=== PATIENT | female | born 1935 | race African-American/Black ===

== ENCOUNTER 2018-01-16 17:09 | Emergency (ER) | payer MEDICARE, MEDICAID ==
[2018-01-16 17:22] VITALS: BP 138/79
--- NOTE | 2018-01-16 17:57 | RAD ---
INDICATION: Right knee injury. TECHNIQUE: 4 views of the right knee were obtained. FINDINGS: The bones are normal alignment. There is a moderate joint effusion present. There is a small calcific density adjacent to the lateral femoral condyle suggestive of a small avulsion fracture fragment. This measures 3 mm in length. Joint spaces appear maintained. IMPRESSION: JOINT EFFUSION AND PROBABLE SMALL AVULSION FRACTURE FRAGMENT DESCRIBED.
[2018-01-16] MEDS ORDERED: Naproxen TAB* 250 MG PO ONE (18:16)
--- NOTE | 2018-01-16 18:16 | UC ---
Knee Pain HPI - HPI Summary HPI Summary: Patient states that about 10 days ago she fell when her walker was caught in a carpet. She could walk inmediately after and pain was mild to moderate. She went to PCP who performed exam of her knee, and she could tolerate all the maneuvers without a problem. She states that for the past few days pain has become worse and she feels her knee is giving away to the side and also pain on the outer side of the knee has increased. She has not taken any NSAID since she is on percoset but she states she has naproxen at home. - History of Current Complaint Chief Complaint: UCLowerExtremity Stated Complaint: KNEE INJURY Time Seen by Provider: 01/16/18 17:30 Hx Obtained From: Patient Hx Last Menstrual Period: na ?: No Onset/Duration: Sudden Onset, Lasting Days Severity Initially: Mild Severity Currently: Moderate Pain Intensity: 6 Character: Dull, Aching Aggravating Factor(s): Movement, Weight Bearing, Prolonged Standing Alleviating Factor(s): Rest Associated Signs And Symptoms: Positive: Negative Able to Bear Weight: Yes - Risk Factors Septic Arthritis Risk Factor: Negative Gout Risk Factor: Negative - Allergies/Home Medications Allergies/Adverse Reactions: Allergies Allergy/AdvReac Type Severity Reaction Status Date / Time morphine Allergy Intermediate Hives Verified 01/16/18 17:23 AMARIS Allergy Intermediate Eyes Uncoded 07/10/15 09:53 Itchy/Swollen/Red/Watery Home Medications: Home Medications Albuterol Sulfate [Proventil Hfa] 01/16/18 [History] Oxycodone HCl/Acetaminophen [Oxycodone/Acetaminophen] 1 tab PO DAILY WITH MEAL 01/16/18 [History Confirmed 01/16/18] Spironolactone 25 mg pe PO DAILY WITH MEAL 01/16/18 [History Confirmed 01/16/18] traZODone TAB* [Desyrel TAB*] 100 mg PO BEDTIME 01/16/18 [History Confirmed 05/24] PMH/Surg Hx/FS Hx/Imm Hx Endocrine History: Dyslipidemia Respiratory History: Asthma GI/ History: Gastroesophageal Reflux Neurological History: Other - fibromyalgia, insomnia Other Neurological History: fibromyalgia, insomnia - Surgical History Surgical History: Yes Surgery Procedure, Year, and Place: 1959 Hysterectomy with tubal [id number] Left hip [id number] Cervical [id number] [id number] L knee arthroscopy - Family History Known Family History: Positive: Respiratory Disease Negative: Cardiac Disease - Social History Alcohol Use: None Substance Use Type: None Smoking Status (MU): Former Smoker When Did the Patient Quit Smoking/Using Tobacco: 1959 - Immunization History Most Recent Influenza Vaccination: April 2014 Most Recent Tetanus Shot: not sure Most Recent Pneumonia Vaccination: 2009 Review of Systems Constitutional: Negative Musculoskeletal: Arthralgia, Myalgia All Other Systems Reviewed And Are Negative: Yes Physical Exam Triage Information Reviewed: Yes Appearance: Well-Appearing, No Pain Distress, Obese Vital Signs: Initial Vital Signs Temp 98.9 F 01/16/18 17:18 Pulse 98 01/16/18 17:18 Resp 20 01/16/18 17:18 BP 138/79 01/16/18 17:18 Pulse Ox 96 01/16/18 17:18 Vital Signs Reviewed: Yes Eyes: Positive: Conjunctiva Clear ENT: Positive: Hearing grossly normal Neck: Positive: Supple, Nontender Respiratory: Positive: Chest non-tender Cardiovascular: Positive: Pulses Normal, Brisk Capillary Refill Abdomen Description: Positive: Nontender, No Organomegaly Musculoskeletal: Positive: ROM Intact, No Edema, Other: - tenderness along lateral aspect of patella, it is mobile, varus/valgus test limited by tenderness for which patient flexes the knee, ADT negative. No tenderness along pes anserinus Knee Pain Course/Dx - Course Course Of Treatment: small avulsion fracture lateral condyle, referred to Orthopedics, continue naproxen , JACKLYN bandage and knee stabilizer fitted - Differential Dx/Diagnosis Provider Diagnoses: Avulsion fracture of lateral condyle right knee Discharge - Sign-Out/Discharge Documenting (check all that apply): Patient Departure - Discharge Plan Condition: Good Disposition: HOME Patient Education Materials: Naproxen (By mouth), Knee Pain (ED), Arthralgia ( ED) Referrals: Rocky Michelle MD [Primary Care Provider] - Alysha Turpin MD [Medical Doctor] - - Billing Disposition and Condition Condition: GOOD Disposition: Home
== END 2018-01-16 18:30 | disposition home or self-care (01) ==
LOC: UCEAST 17:09
DX: S82.001A Unspecified fracture of right patella, initial encounter for closed fracture (principal); W01.0XXA Fall on same level from slipping, tripping and stumbling without subsequent striking against object, initial encounter; Y93.9 Activity, unspecified; Y99.9 Unspecified external cause status; E78.5 Hyperlipidemia, unspecified; J45.909 Unspecified asthma, uncomplicated; K21.9 Gastro-esophageal reflux disease without esophagitis; M79.7 Fibromyalgia; G47.00 Insomnia, unspecified
CPT/HCPCS: 99213; A9270-GY; G0463

== ENCOUNTER 2018-05-24 06:54 | Inpatient (IN) | payer MEDICARE, MEDICAID ==
--- NOTE | 2018-05-12 19:29 | HP ---
HISTORY AND PHYSICAL: DATE OF ADMISSION/SURGERY: 05/24/18 DATE OF OFFICE VISIT: 05/11/18 SURGEON: Alysha Turpin MD * (DICTATED BY HERMINIO VAZQUEZ) PROCEDURE: Right total knee arthroplasty. CHIEF COMPLAINT: Right knee pain. HISTORY OF PRESENT ILLNESS: Ms. Hannah is an 82-year-old female with end- stage osteoarthritis of the right knee. She has failed conservative treatment and elected to proceed with a right total knee arthroplasty. PAST MEDICAL HISTORY: Hypertension, high cholesterol, GERD and TIA. PAST SURGICAL HISTORY: Left total hip arthroplasty, cervical laminectomy, tubal ligation, hemorrhoidectomy and hysterectomy. CURRENT MEDICATIONS: 1. Cyclobenzaprine 10 mg. 2. Lovastatin 20 mg. 3. Naproxen 375 mg. 4. Omeprazole 40 mg daily. 5. Oxybutynin chloride 5 mg daily. 6. Percocet as needed. 7. ProAir HFA. 8. Spironolactone/hydrochlorothiazide 25/25 mg daily. 9. Trazodone 50 mg. 10. Voltaren gel. 11. Calcium with vitamin D. 12. Aspirin 325. ALLERGIES: To MORPHINE. FAMILY HISTORY: Colon cancer and DVT. SOCIAL HISTORY: She is an 82-year-old female. She lives alone. She does not smoke or use drugs. She uses occasional alcohol. REVIEW OF SYSTEMS: A complete 14-point review of systems was reviewed with the patient. It is positive for GERD and a TIA. She denies history of DVT, PE, hepatitis, HIV, or anesthesia problems. PHYSICAL EXAMINATION GENERAL: She is well developed, well nourished, in no acute distress. VITAL SIGNS: She stands about 5 feet 5 inches tall, weighs 215 pounds. Her blood pressure is 120/72 and her heart rate is 84. HEENT: Normocephalic, atraumatic. NECK: Supple. No palpable lymph nodes. PULMONARY: The lungs are clear to auscultation bilaterally. CARDIO: Regular rate and rhythm. Strong S1, S2. ABDOMEN: Soft, nontender, nondistended. NEUROLOGICAL: She is alert and oriented x3. MUSCULOSKELETAL: Right lower extremity, the skin is intact. There are no open wounds or abrasions. She has moderate joint effusion and some tenderness over the medial lateral joint line. Calf is soft and nontender. She has 2+ dorsalis pedis pulse. Intact sensation to lower extremity, muscle group strengths are intact at 5/5. ASSESSMENT AND PLAN: Ms. Hannah is an 82-year-old female with end-stage osteoarthritis of the right knee. She has failed conservative treatment and elected to proceed with a right total knee arthroplasty. The surgery is scheduled for 05/24/[address] Turpin discussed the risks and the benefits of the surgery at today's visit and all of her questions were answered. She will follow up with Dr. Turpin 2 weeks after the surgery. HERMINIO VAZQUEZ [id number]/[facility] #: [id number] MTDBelem
[~2018-05-24 06:54] MED LIST: Buffered Lidocaine 0.9% SYRIN* 5 ML/SYR SYRINGE INTRADERM ONE; Dexamethasone IV* 4 MG/ML 1 ML (4 MG) IV SLOW PU ONE; Dexamethasone IV* 4 MG/ML 1 ML (4 MG) ONE; Famotidine IV* 10 MG/ML 2 ML (20 mg) IV ONE; Famotidine IV* 10 MG/ML 2 ML (20 mg) ONE; Lactated Ringers 1000 ML Bag* 1,000 ML IV SCH; Tranexamic Acid 1,000 MG in NS 0.9% 50 ML* (outpatient use) IV SCH; ceFAZolin 2 GM PREMIX in ORs 2 GM/50 ML BAG IVPB ONE
[2018-05-24] MEDS ORDERED: Lidocaine 2% PF * 5 ML VIAL ONE (06:56)
[2018-05-24] MEDS ORDERED: Midazolam* 1 MG/ML 2 ML VIAL (2 MG) ONE (06:56)
[2018-05-24] MEDS ORDERED: fentaNYL* 50 MCG/ML 2 ML VIAL (100 MCG VIAL) ONE ×2 (06:56→10:48)
--- OUTSIDE RECORDS SUMMARY | 2018-05-24 06:58 | XMS REPORT | Continuity of Care Document ---
:1935 External Reference #:[id number] Author Name Mercedes Kirk Care Team Providers Name Role Phone Rocky Michelle MD Primary Care Physician Unavailable Payers Type Date Identification Numbers Payment Provider Subscriber Policy Number: [id number] Medicare Azeb Hannah PayID: [id number] [address] [place] [address] Effective: 2009 Policy Number: [id number] Medicaid Azeb Hannah PayID: [id number] [address] [place] [address] Effective: 2016 Policy Number: [id number] [facility] Azeb Hannah Expires: 2018 Group Number: [id number] [facility] PayID: [id number] [facility] [address] [place] [address] Advance Directives Description No Information Available Problems Date Description Provider Status Onset: 12/04/2014 Closed fracture of medial malleolus Paulino Baker M.D. Active Onset: 01/17/2018 Localized, primary osteoarthritis Alysha Turpin M.D. Active Onset: 01/17/2018 Fall Alysha Turpin M.D. Active Family History Date Family Member(s) Problem(s) Comments General Cancer General Rheumatoid Arthritis Social History Type Date Description Comments Sex Unknown Lives With Alone Occupation Retired ETOH Use Denies alcohol use Tobacco Use Start: Unknown End: Patient is a former smoker Unknown Smoking Status Reviewed: 05/11/18 Patient is a former smoker Exercise Type/Frequency Exercises sporadically Allergies, Adverse Reactions, Alerts Date Description Reaction Status Severity Comments 01/17/2018 Morphine Active 04/24/2014 NKDA Inactive Medications Medication Date Status Form Strength Qnty SIG Indications Ordering Provider Cyclobenzaprine / Active Tablets 10mg Shallish, HCL 0000 MD Nixon Lovastatin / Active Tablets 20mg Midura, 0000 MD Rocky Naproxen / Active Tablets 375mg Midura, 0000 MD Rocky Omeprazole / Active Capsules 40mg Breiman, 0000 DR Omid MD Oxybutynin / Active Tablets 5mg Unknown Chloride 0000 Oxycodone-Acetami / Active Tablets 5-325mg Take 1-2 Unknown nophen 0000 Tablets By Mouth Every Six Hours as Needed Max Of 8 Per Day Proair HFA / Active Aerosol 108(90Base Midura, 0000 ) mcg/Act MD Rocky Spironolactone/Hy / Active Tablets 25-25mg Unknown drochlorothiazide 0000 Trazodone HCL / Active Tablets 50mg Dale 0000 dOmid MD Voltaren / Active Gel 1% Midura, 0000 MD Rocky Calcium + D / Active Unknown 0000 Aspirin / Active Tablets DR 325mg take 1 Unknown 0000 by mouth twice a day for two weeks Neurontin 04/24/ Hx Capsules 300mg 90caps 2 tabs Leonardo 2013 - by mouth Justino, 01/16/ every M.D. 2017 night at bedtime. after 10 days if no side effects add one tab po qAM Omeprazole / Hx 20mg Unknown 2017 Lovastatin / Hx 20mg Unknown 2017 Flexeril / Hx 10mg Unknown 2017 Trazodone HCL / Hx 50mg Unknown 2017 Lovenox / Hx 40mg Unknown 2017 Medications Administered in Office Medication Date Status Form Strength Qnty SIG Indications Ordering Provider Synvisc Or Administered Injection Alysha Synvisc-One 018 Mayelin Turpin Injection 1 MG Synvisc Or Administered Injection Alysha Synvisc-One 018 Mayelin Turpin Injection 1 MG Synvisc Or Administered Injection Alysha Synvisc-One Beatrice Turpin M.D. Injection 1 MG Depomedrol Administered Injection Alysha 40MG Beatrice Turpin M.D. Immunizations Description No Information Available Vital Signs Date Vital Result Comment 05/11/2018 11:37am Height 64 inches 5'4" Weight 216.00 lb Heart Rate 84 /min BP Systolic 120 mmHg BP Diastolic 72 mmHg Respiratory Rate 20 /min Body Temperature 98.3 F Pain Level 6 BMI (Body Mass Index) 37.1 kg/m2 04/04/2018 2:09pm Height 64 inches 5'4" Weight 215.00 lb BP Systolic 120 mmHg BP Diastolic 84 mmHg Body Temperature 97.8 F BMI (Body Mass Index) 36.9 kg/m2 03/28/2018 1:22pm Height 64 inches 5'4" Weight 216.00 lb BP Systolic 138 mmHg BP Diastolic 90 mmHg Body Temperature 98.1 F BMI (Body Mass Index) 37.1 kg/m2 02/25/2018 1:02pm Heart Rate 96 /min BP Systolic Sitting 128 mmHg BP Diastolic Sitting 78 mmHg Respiratory Rate 18 /min Pain Level 0 01/28/2018 11:08am Height 64 inches 5'4" BP Systolic 122 mmHg BP Diastolic 78 mmHg Respiratory Rate 17 /min Body Temperature 98.2 F Pain Level 6 01/17/2018 2:11pm Height 64 inches 5'4" Weight 220.00 lb Heart Rate 92 /min BP Systolic 120 mmHg BP Diastolic 76 mmHg BMI (Body Mass Index) 37.8 kg/m2 01/03/2015 1:39pm Height 64 inches 5'4" Weight 217.00 lb Pain Level 1 BMI (Body Mass Index) 37.2 kg/m2 12/04/2014 1:04pm Height 64 inches 5'4" Weight 217.00 lb Pain Level 2 at times BMI (Body Mass Index) 37.2 kg/m2 11/22/2014 12:01pm Height 64 inches 5'4" Weight 217.00 lb Pain Level 4 BMI (Body Mass Index) 37.2 kg/m2 11/08/2014 10:30am Height 64 inches 5'4" Weight 217.00 lb Heart Rate 103 /min BP Systolic 114 mmHg BP Diastolic 80 mmHg BMI (Body Mass Index) 37.2 kg/m2 05/23/2014 1:10pm Height 64 inches 5'4" Heart Rate 92 /min BP Systolic 113 mmHg BP Diastolic 74 mmHg 04/24/2014 1:12pm Height 64 inches 5'4" Weight 206.00 lb Heart Rate 88 /min BP Systolic 140 mmHg BP Diastolic 86 mmHg BMI (Body Mass Index) 35.4 kg/m2 Results Description No Information Available Procedures Date Code Description Status 04/11/2018 Inject/Drain Joint/Bursa Major W/O US Completed 04/04/2018 Inject/Drain Joint/Bursa Major W/O US Completed 03/28/2018 Inject/Drain Joint/Bursa Major W/O US Completed 01/28/2018 Inject/Drain Joint/Bursa Major W/O US Completed 05/04/2016 73172 ECHO Transthorasic Realtime 2D W Doppler & Color Flow Hosp Completed 11/08/2014 42065 Short Leg Cast Completed 10/30/2014 98201 ECHO Transthorasic Realtime 2D W Doppler & Color Flow Hosp Completed 10/30/2014 01901 EKG, Interpretation Only Completed 10/29/2014 19301 Closed TX Bimalleolar FX W/O Manip Completed 06/11/2014 56902 ECHO Transthorasic Realtime 2D W Doppler & Color Flow Hosp Completed 04/24/2014 64587 Rad Shoulder Comp, Min. 2 Views Completed 11/11/2012 76332 Treadmill Interp/Report Only Completed 11/11/2012 67161 Stress Test Supervsn W/Out I/R Completed 11/11/2012 99222 EKG, Interpretation Only Completed 10/25/2009 96873 ECHO Transthorasic Realtime 2D W Doppler & Color Flow Hosp Completed 09/18/2005 38830 EKG, Interpretation Only Completed 05/27/2004 49146 ECHO/Stress Completed 05/27/2004 75581 Treadmill Interp/Report Only Completed 05/27/2004 53387 Stress Test Supervsn W/Out I/R Completed Encounters Type Date Location Provider Dx Diagnosis Office Visit 02/25/2018 Orthopedic Alysha Turpin, M25.561 Pain in right 1:45p [facility] knee M25.461 Effusion, right knee M17.11 Unilateral primary osteoarthritis, right knee Office Visit 01/28/2018 11:00a [facility] Alysha Turpin, M25.561 Pain in right Of C.M.A. M.D. knee M25.461 Effusion, right knee M17.11 Unilateral primary osteoarthritis, right knee W01.0xxA Fall same lev from slip/trip w/o strike against object, init E66.01 Morbid (severe) obesity due to excess calories Office Visit 01/17/2018 1:45p [facility] Alysha Turpin, M25.561 Pain in right Of C.M.A. M.D. knee M25.461 Effusion, right knee M17.11 Unilateral primary osteoarthritis, right knee W19.xxxA Unspecified fall, initial encounter W01.0xxA Fall same lev from slip/trip w/o strike against object, init Office Visit 05/05/2016 [facility] N30.00 Acute cystitis 1:01p Assocguicho NP without Hospitalists hematuria R41.0 Disorientation, unspecified W19.xxxA Unspecified fall, initial encounter I10 Essential (primary) hypertension Office Visit 05/04/2016 [facility] N30.00 Acute cystitis 1:00p Assocguicho NP without Hospitalists hematuria R41.0 Disorientation, unspecified I10 Essential (primary) hypertension W19.xxxA Unspecified fall, initial encounter Office Visit 05/03/2016 [facility] R41.0 Disorientation, 12:59p Assoc,guicho Puente D.O. unspecified Hospitalists I10 Essential (primary) hypertension N30.00 Acute cystitis without hematuria W19.xxxA Unspecified fall, initial encounter Office Visit 11/02/2014 10:51a [facility] Ruddy Monterroso, 780.2 Syncope & Assoc,pc M.D. Collapse Hospitalists 824.8 FX Ankle Unspec Closed 723.1 Cervicalgia 401.9 Hypertension Unspec Office Visit 10/29/2014 10:47a [facility] Francisco Omar, 780.2 Syncope & Assoc,pc N.P. Collapse Hospitalists 824.8 FX Ankle Unspec Closed 401.9 Hypertension Unspec 723.1 Cervicalgia Office Visit 10/29/2014 7:00a Orthopedic Paulino Baker, 824.0 FX Ankle Medial [facility] Malleolus Closed 824.4 FX Ankle Bimalleolar Closed Office Visit 06/12/2014 6:49p [facility] Vira 435.9 TIA Ischemia Assoc,guicho Love, TRUST MAIL CLERK Cerebral Hospitalists Transient Unspec 401.9 Hypertension Unspec 530.81 Esophageal Reflux 272.4 Hyperlipidemia Other Unspec Office Visit 06/12/2014 3:04p [facility] Elías Soto 435.9 TIA Ischemia [facility] Cerebral Transient Unspec 331.89 Cerebral Ataxia Other 401.1 Hypertension Benign Office Visit 06/11/2014 9:51a [facility] Elías Soto 435.9 TIA Ischemia [facility] Cerebral Transient Unspec 331.89 Cerebral Ataxia Other 401.1 Hypertension Benign Office Visit 06/10/2014 [facility] Rajesh Granados 435.9 TIA Ischemia 6:47p Assoc,guicho DEE M.D. Cerebral Hospitalists Transient Unspec 401.9 Hypertension Unspec 272.4 Hyperlipidemia Other Unspec 530.81 Esophageal Reflux Office Visit 05/23/2014 Orthopedic Leonardo 723.4 Brachial Neuritis 1:30p [facility] Badillo M.D. Or Radiculitis NOS Office Visit 04/24/2014 [facility] Leonardo 724.4 Neuritis Or 1:00p [facility] Badillo M.D. Radiculitis Thoracic Or Lumbosacral Unspec Office Visit 11/12/2012 [facility] Ruddy Monterroso, 786.51 Pain Precordial 10:38a guicho Ness M.D. Hospitalists Office Visit 11/11/2012 [facility] Frankie 786.51 Pain Precordial 10:38a Assguicho pickard M.D. Hospitalists Office Visit 10/26/2009 [facility] 780.2 Syncope & 2:45a guicho Ness M.D. Collapse Hospitalists Office Visit 10/25/2009 [facility] 780.2 Syncope & 2:45a guicho Ness M.D. Collapse Hospitalists Office Visit 12/07/2006 [facility] 782.0 Skin Sensation 2:15p Services Of Osvaldo Ferrera M.D. Disturbance Office Visit 11/30/2006 [facility] Patrick 782.0 Skin Sensation 2:30p Services [facility] Osvaldo Ferrera M.D. Disturbance Plan of Treatment Future Appointment(s):05/24/2018 9:30 am - ANUJ Colon at [facility].05/24/2018 9:30 am - HERMINIO Geronimo at [facility].05/24/2018 9:30 am - Alysha Turpin M.D. at [facility].05/11/2018 - Alysha Turpin M.D.M17.11 Unilateral primary osteoarthritis, right kneeFollow up:Follow up: 2 weeks after jouirbhI10.561 Pain in right kneeM25.461 Effusion, right knee
[2018-05-24] MEDS ORDERED: Bupivacaine 0.5% PF 10 ML VIAL INJ ONE (07:05)
[2018-05-24] MEDS ORDERED: Rocuronium* 10 MG/ML VIAL ONE (07:21)
[2018-05-24] MEDS ORDERED: Lidocaine 1%* 5 ML VIAL ONE (07:29)
[2018-05-24] MEDS ORDERED: ROPIVACAINE 5 MG/ML 30 ML BTL (0.5%) ONE (07:29)
[2018-05-24] MEDS ORDERED: HYDROmorphone INJ1* 1 MG/ML SYRINGE ONE ×2 (08:04→10:44)
[2018-05-24] MEDS ORDERED: Propofol* 10 MG/ML 20 ML BTL ONE (08:34)
[2018-05-24] MEDS ORDERED: Bupivacaine-MPF SPINAL* 7.5 MG/ML - 2ML AMP ONE (08:34)
[2018-05-24] MEDS ORDERED: Naloxone* 0.4 MG/ML 1 ML VIAL IV PRN (08:37)
[2018-05-24] MEDS ORDERED: Acetaminophen IV 1GM/100ML * 1,000 MG/100 ML VIAL IVPB ONE (08:37)
[2018-05-24] MEDS ORDERED: oxyCODONE/Acetamin 5/325 MG* TAB PO PRN ×2 (08:43→10:14)
[2018-05-24] MEDS ORDERED: Ketorolac INJ* 30 MG/ML 1 ML VIAL IV PRN (08:43)
[2018-05-24] MEDS ORDERED: PROCHLORPERAZINE INJ 5 MG/ML 2 ML VIAL IV PRN (08:43)
[2018-05-24] MEDS ORDERED: DiMENhydriNATE IV* 50 MG/ML VIAL IV PUSH PRN (08:43)
[2018-05-24] MEDS ORDERED: Ondansetron INJ* 2 MG/ML VIAL ONE (09:56)
[2018-05-24] MEDS ORDERED: Acetaminophen IV 1GM/100ML * 100 ML ONE (10:00)
[2018-05-24] MEDS ORDERED: Ketorolac INJ* 30 MG/ML 1 ML VIAL ONE (10:00)
[2018-05-24] MEDS ORDERED: Ondansetron TAB* 4 MG PO PRN (10:14)
[2018-05-24] MEDS ORDERED: Ondansetron INJ* 2 MG/ML VIAL IV PRN (10:14)
[2018-05-24] MEDS ORDERED: Magnesium Hydroxide LIQ* 30 ML UDC PO PRN (10:14)
[2018-05-24] MEDS ORDERED: Bisacodyl SUPP* 10 MG SUPP PR PRN (10:14)
[2018-05-24] MEDS ORDERED: Polyethylene Glycol 3350* 17 GM PACKET PO PRN (10:14)
[2018-05-24] MEDS ORDERED: Oxybutynin TAB* 5 MG PO PRN (10:19)
[2018-05-24] MEDS: HYDROmorphone INJ1* 1 MG/ML SYRINGE IV PRN ×5 (10:44→11:30)
[2018-05-24] MEDS: fentaNYL* 50 MCG/ML 2 ML VIAL (100 MCG VIAL) IV PRN ×4 (10:49→11:07)
[2018-05-24] MEDS ORDERED: Albuterol HFA INHALER* 8 gm MDI INH PRN (11:51)
[2018-05-24] MEDS ORDERED: diPHENhydraMINE IV* 50 MG/ML 1 ml VIAL (BENADRYL) IV PRN (11:53)
[2018-05-24] MEDS ORDERED: oxyCODONE/Acetamin 5/325 MG* TAB ONE (11:53)
[2018-05-24] MEDS: oxyCODONE/Acetamin 5/325 MG* TAB PO PRN ×3 (11:59→21:51)
[2018-05-24] MEDS: Lactated Ringers 1000 ML Bag* 1,000 ML IV SCH ×2 (12:01→22:00)
--- NOTE | 2018-05-24 13:27 | PN ---
Progress Note - Progress Note Date of Service: 05/24/18 SOAP: Patient is POD [address] Turpin. She is complaining of pain of her right knee, she did receive dilaudid 1 hour ago and percocet just recently. Denies CP , SOB, dizziness, nausea, history of blood clot. She does have a history of TIA. Patient is in NAD, DF/PF intact, sensation intact to light touch distally, DP2+. I discussed pain control with nursing, as she did recently receive percocet we elect to give it time as patient is not terribly uncomfortable, if pain is not better controlled within the hour with current orders she will contact me.
[2018-05-24] MEDS: HYDROmorphone INJ1* 1 MG/ML SYRINGE IV SLOW PU PRN ×3 (13:55→23:05)
[2018-05-24] MEDS: ceFAZolin 1 GM ADVAN(*) 1 GM in NS 0.9% 50 ML* 50 ML IVPB SCH ×2 (16:35→23:44)
[2018-05-24] MEDS ORDERED: Warfarin TAB(*) 6 MG PO ONE (17:00)
[2018-05-24] MEDS: Acetaminophen TAB* 325 MG PO SCH (17:16)
--- NOTE | 2018-05-24 18:49 | CONS ---
CONSULTATION REPORT: DATE OF CONSULT: 05/24/18 PRIMARY CARE PROVIDER: Rocky Michelle MD ATTENDING PHYSICIAN: Alysha Turpin MD CONSULTING PHYSICIAN: Negrita Lisa MD, (HERMINIO Marin dictating) REASON FOR CONSULTATION: Medical comanagement in patient admitted for TKA. 1. Hypertension. 2. Hyperlipidemia. 3. Gastroesophageal reflux disease. HISTORY OF PRESENT ILLNESS: Ms. Hannah is an 82-year-old female who is postop day 0 right total knee arthroplasty with a past medical history of hypertension , hyperlipidemia, GERD, TIA which occurred approximately 2 years ago, chronic pain, migraine. Today, she is being evaluated by Hospital Medicine regarding her hypertension, hyperlipidemia, and GERD and history of TIA. The patient reports that her last dose of spironolactone/HCTZ was yesterday and her last dose of Bumex was Wednesday. She has had no recent changes to her medications for both hypertension and hyperlipidemia. The patient denies chest pain, headache, shortness of breath, palpitations, blurry vision, nausea, vomiting, diarrhea, abdominal pain, fever, urinary concern. The patient states that she has regular bowel movements with the use of MiraLAX. The patient states she has a history of chronic pain and is positive for arthralgias. PAST MEDICAL HISTORY: 1. Hypertension. 2. Hyperlipidemia. 3. Gastroesophageal reflux disease. 4. TIA. 5. Chronic pain. 6. Migraines. 7. Osteoarthritis. PAST SURGICAL HISTORY: 1. Hysterectomy. 2. Tubal ligation. 3. Hemorrhoidectomy. 4. Knee arthroscopic surgery. HOME MEDICATIONS: 1. Trazodone tab 100-200 PO bedtime 2. Spironolactone/HCTZ 1 tab PO qam 3. Oxybutynin tab 5mg PO TID PRN 4. Omeprazole 40mg PO qam 5. Lovastatin 20mg PO bedtime 6. Cyclobenzaprine 10mg PO q8h PRN 7. Bumetidine 0.5mg PO BID PRN 8. Aspirin 325mg PO qam 9. Oxycodone/Acetaminophen 5/325mg 1-2 tabs PO q6h PRN 10. Polyethylene Glycol 3350 17g PO QOD PRN 11. Naproxen 375mg q tab PO TID PRN 12. Multivitamin/Iron/Folic Acid 1 cap PO qam 13. Diclofenac 1% gel topical BID 14. Albuterol Sulfate 2 puff inh Q4h PRN ALLERGIES: MORPHINE, AMARIS. FAMILY HISTORY: The patient states that her mother was relatively healthy and at the age of 94. Father at the age of 72 of colon cancer. The patient has 1 daughter with epilepsy. SOCIAL HISTORY: The patient quit smoking in 1959 when she became . Prior to that, she reported that she smoked very little, approximately 1 pack per week. The patient reports drinking approximately 1 alcoholic beverage every 6 months. She lives at [facility] by herself and is retired. REVIEW OF SYSTEMS: A 10-point review of systems was performed and all the pertinent positives and negative findings are in the HPI. All other systems are negative. PHYSICAL EXAMINATION: GENERAL: Ms. Hannah is a well-developed, well-nourished, woman who is sitting back in her bed with the right leg elevated. She is in a mild amount of discomfort. VITAL SIGNS: Temperature 97, pulse 77, respiratory rate 16, O2 93%, blood pressure 129/63. HEENT: Visual elias are grossly intact. Extraocular movements intact. Sclerae without icterus. Dentition good. Oral mucous membranes slightly dry. Tongue at midline. NECK: Trachea midline. No cardiac bruits auscultated. RESPIRATORY: Symmetrical chest expansion. lungs clear to auscultation bilaterally. No rhonchi, rubs, or wheezes. CARDIOVASCULAR: S1 and S2 present. Regular rate and rhythm. No murmurs, rubs , clicks, or gallops. No JVD. ABDOMEN: soft and nontender to palpation. Bowel sounds normoactive in all 4 quadrants. EXTREMITIES: Skin warm and dry without upper extremity edema. Positive for left lower extremity nonpitting edema. Capillary refill less than 2 seconds. Pedal pulses 2+ bilaterally. NEURO: Grossly intact. Alert and oriented x3. PSYCH: Cooperative and appropriate. DIAGNOSTIC STUDIES/LABORATORY DATA: None available for current admission. ASSESSMENT AND PLAN: Ms. Hannah is an 82-year-old female with a past medical history of hypertension, hyperlipidemia, gastroesophageal reflux disease, transient ischemic attack, chronic pain, and migraine. I have been asked to review her medical history by Ortho. The hospital group will continue to follow and manage this patient's medications for hypertension, hyperlipidemia, GERD, and TIA. 1. LTKA. Management of pain, bowel regimen, activity, diet per ortho 2. Hypertension. The patient is taking spironolactone/HCTZ for hypertension. At this time, this medication will be held as the patient is postop. The patient's blood pressure will be reassessed tomorrow as well as her fluid status to decide whether to restart spironolactone/HCTZ. Bumex, which the patient takes p.r.n. for left lower extremity edema will also be held and reassessed in the morning. 3. Hyperlipidemia. Continue lovastatin. 4. Gastroesophageal reflux disease. Continue Prilosec. 5. History of transient ischemic attack. Resume aspirin when approved by Ortho. 6. DVT Prophylaxis. Managed by Ortho. Warfarin to Lovenox bridge. 7. Code status: Full code. TIME SPENT: Approximately 30 minutes were spent on this admission, greater than half of that time was spent with the patient obtaining my history, performing physical exam, and reviewing the plan of care. The case has been reviewed with my attending Dr. Lisa, who is in agreement with the plan of care. HERMINIO MANN [id number]/[facility] #: [id number] RYDER
[2018-05-24] MEDS: oxyCODONE TAB* 5 MG TAB PO PRN (20:15)
[2018-05-24] MEDS: Docusate CAP* 100 MG PO SCH (20:17)
[2018-05-24] MEDS: Magnesium Hydroxide LIQ* 30 ML UDC PO SCH (20:17)
[2018-05-24] MEDS: traMADol TAB* 50 MG PO PRN (20:21)
[2018-05-24] MEDS: Cyclobenzaprine TAB* 10 MG PO PRN (22:01)
[2018-05-24] MEDS: CMCS:Lovastatin (NF) 10 MG TAB PO SCH (22:01)
[2018-05-25] MEDS: oxyCODONE TAB* 5 MG TAB PO PRN ×4 (00:16→22:58)
[2018-05-25] MEDS: oxyCODONE/Acetamin 5/325 MG* TAB PO PRN ×5 (02:06→20:25)
[2018-05-25] MEDS: HYDROmorphone INJ1* 1 MG/ML SYRINGE IV SLOW PU PRN ×6 (02:07→23:05)
[2018-05-25] MEDS: Acetaminophen TAB* 325 MG PO SCH ×3 (02:52→16:52)
[2018-05-25] MEDS: traMADol TAB* 50 MG PO PRN ×3 (03:32→23:58)
[2018-05-25] MEDS ORDERED: Albuterol HFA INHALER* 8 gm MDI INH PRN ×2 (04:00→04:01)
--- NOTE | 2018-05-25 07:54 | OP ---
DATE OF OPERATION: 05/24/18 - ROOM #342 DATE OF : 35 SURGEON: Alysha Turpin MD CODING QUALITY ANALYST: HERMINIO Day. Lisseth Supa did help throughout the procedure with preparation of the leg, wound retraction, manipulation of the knee, and wound closure. ANESTHESIOLOGIST: Dr. Liu. ANESTHESIA: General. 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 OPERATIVE PROCEDURE: Right total knee arthroplasty. COMPLICATIONS: None. TOURNIQUET TIME: 43 minutes. SPECIMEN: Bone and cartilage from the right knee joint sent to Pathology. HARDWARE USED: This is [employer] cemented total knee arthroplasty hardware. Two packages of Simplex bone cement. For the femur, a right size 5 narrow posterior stabilized Legion femoral component. For the tibia, a size 3, right Brittany II tibial base plate. For the insert, an 11-mm constrained articular insert, size 3-4. For the patella, a 32 mm 3-peg all poly patella. BRIEF HISTORY/INDICATIONS: Ms. Hannah is an 82-year-old female with years of increasingly severe right knee pain. She developed increasing valgus deformity and radiographs showed severe afhs-rl-veje arthritis. She failed conservative treatment with antiinflammatories, pain medication, intra-articular injections, and physical therapy. Due to continued pain and decreased quality of life, she elected to undergo a right total knee arthroplasty. Informed consent was obtained from the patient. She understood the risks of surgery included, but were not limited to bleeding, infection, damage to nearby structures, continued pain, need for further surgery, intraoperative fracture, nerve palsy, hardware failure or loosening, knee stiffness, loss of motion, stroke, heart attack, blood clot, and . She wished to proceed. INTRAOPERATIVE FINDINGS: Intraoperatively, the patient had preop range of motion of 10 to 120 degrees flexion with 15 degrees valgus deformity. Intraoperatively, she was noted to have significant MCL laxity. DESCRIPTION OF PROCEDURE: Ms. Hannah was identified in the preanesthesia unit. Her right lower extremity was marked as the correct operative site. Informed consent was signed and placed in the chart. The patient was taken to the operating room and placed under general anesthesia. A Thapa catheter was placed. A tourniquet was placed on the right thigh. Right lower extremity was prepped and draped in the usual sterile fashion. Preop time-out was made to correctly identify the patient, side and site. Appropriate perioperative antibiotics were given within 1 hour of incision. Tourniquet was inflated and total tourniquet time for this procedure was 43 minutes. A midline incision was made with a 10-blade and carried down to the extensor mechanism. A new 10-blade was used to make a standard medial parapatellar arthrotomy. The patella was subluxed laterally. Electrocautery was used to subperiosteally elevate the soft tissue off the superomedial tibia to the midsagittal plane. The knee was flexed up. The anterior horn of the lateral meniscus and ACL were sharply released. A drill was used to enter the distal femur. Intramedullary distal femoral cutting guide was pinned on the distal femur. Oscillating saw was used to make the distal femoral cut. Lateral femoral condylar hypoplasia was noted and accounted for. Next, the external rotation guide was pinned on the distal femur. The distal femur was sized to a size 5. A size 5 multi-cutting jig was pinned on the distal femur. Oscillating saw was used to make the appropriate 4 chamfer cuts. The PCL was completely released. Tibia was subluxed anteriorly. Extramedullary tibial cutting guide was pinned on the proximal tibia. Oscillating saw was used to make the proximal tibial cut perpendicular to the mechanical axis of the tibia. The tibial bone was carefully removed. The knee was brought out into full extension. A spacer block had good fit. Medial and lateral ligamentous balancing was appropriate; however, there was chronic MCL laxity noted. Flexion and extension gaps were well balanced. The knee was flexed up. Lamina fan blade aligner was placed both medially and laterally. Any remaining meniscus was carefully removed using electrocautery. A curved osteotome was used to remove any posterior osteophytes. Tibial tray and drop yee were placed and once again confirmed a satisfactory tibial cut. A size 5 narrow right femoral trial was impacted onto the distal femur and had excellent fit and stability. The box for the posterior stabilized implant was prepared using a reamer and box cut osteotome. Size 3 tibial tray trial with an 11- mm insert trial was placed and the knee was taken through a range of motion. The knee was stable in all positions and had full extension to 130 degrees of flexion. There was satisfactory patellofemoral tracking. The patella was everted. A 9 mm of patellar bone and cartilage was carefully removed using an oscillating saw. The patella was sized to a size 32. Three peg holes were drilled through the size 32 guide. A 32 trial patella was placed and the knee was taken through a range of motion. There was satisfactory patellofemoral tracking. All trials were carefully removed. The tibia was subluxed anteriorly and sized to a size 3. Proximal tibia was prepared using a size 3 keel punch. All bony cut surfaces were copiously irrigated with sterile saline and dried. Final implants were cemented into place, starting with the tibia, followed by the femur, and last the patella. An 11-mm insert trial was placed and the knee was brought out into full extension. Tourniquet was turned down at 43 minutes. The knee was copiously irrigated with sterile saline. Electrocautery was used to obtain meticulous hemostasis. Once the cement had fully cured, the insert trial was removed. Any excess cement was removed from around the capsule and hardware. Final insert chosen was an 11-mm constrained articular insert size 3-4. This was locked into position on the tibial tray. The stability of the insert was checked and rechecked and noted to be stable. This wound was once again copiously irrigated with sterile saline. The extensor mechanism was closed using interrupted #1 Vicryl. The rest of the incision was closed in a layered fashion using 0 and 2-0 Vicryl. Skin was closed using running 3-0 nylon suture. Sterile Xeroform, 4x4's, and Webril were used to cover the incision. Adam wrap and cold pack were placed over this. The patient's anesthesia was reversed without difficulty. . Intended weightbearing will be weightbearing as tolerated. Intended DVT prophylaxis will be Coumadin with a Lovenox bridge. [id number]/[facility] #: [id number] RYDER
[2018-05-25] MEDS: Omeprazole CAP* 20 MG PO SCH (08:12)
[2018-05-25] MEDS: Docusate CAP* 100 MG PO SCH ×2 (08:13→22:53)
[2018-05-25] MEDS: ceFAZolin 1 GM ADVAN(*) 1 GM in NS 0.9% 50 ML* 50 ML IVPB SCH (08:13)
[2018-05-25] MEDS: Magnesium Hydroxide LIQ* 30 ML UDC PO SCH ×2 (08:13→22:53)
[2018-05-25] MEDS: oxyCODONE SR TAB(*) 10 MG TAB.SR PO SCH ×2 (08:13→20:26)
[2018-05-25] MEDS ORDERED: Spironolactone/HCTZ 25-25 MG* 1 TAB PO SCH (09:00)
[2018-05-25 09:07] LABS: Hematocrit 31 % (35-47); Hemoglobin 9.9 g/dl (12.0-16.0); Mean Platelet Volume 7.8 fL (7.4-10.4); Platelet Count 188 10^3/ul (150-450)
[2018-05-25 09:29] LABS: INR 1.02 (0.77-1.02)
[2018-05-25 09:46] LABS: BUN/Creatinine Ratio 15.5 (8-20); Calcium 8.5 mg/dL (8.6-10.3); EGFR Non-African American 47.6 (>60); Potassium 3.5 mmol/L (3.5-5.0)
--- NOTE | 2018-05-25 10:02 | PN ---
Progress Note - Progress Note Date of Service: 05/25/18 SOAP: Subjective: []Patient was seen and examined at bedside. She feels well without CP, SOB, dizziness, nausea. Her pain is well controlled today. Objective: []General: Well appearing, NAD RLE: Dressing CDI, cryo unit in use, thigh is soft, DF/PF intact, DP2+, sensation intact distally BL calves supple and nontender without erythema, edema or palpable cords Assessment: []RTK POD 1 Dr Turpin 05/25 Plan: []WBAT PT/OT Lovenox bridge to coumadin. Coumadin 8 mg today. Will restart ASA 325 when bridge complete to have ASA in combination with coumadin. SNF placement needed Vital Signs Temp 97.9 F 05/25/18 07:34 Pulse 78 05/25/18 07:34 Resp 18 05/25/18 11:02 BP 131/62 05/25/18 07:34 Pulse Ox 100 05/25/18 08:00 Intake & Output 05/24/18 05/25/18 05/25/18 18:59 06:59 18:59 Intake Total 1940 1958 Output Total 450 800 Balance 1490 1158 Intake: IV Fluids 1450 1708 ABX - CEFAZOLIN 114 LR 1400 1594 NS 50ML, Cefazolin 2G 50 IVPB 100 LR 100 Oral 390 250 Output: Urine 0 Thapa 450 800 Laboratory Last Values Hgb 9.9 g/dl (12.0-16.0) L 05/25/18 09:00 Hct 31 % (35-47) L 05/25/18 09:00 Plt Count 188 10^3/ul (150-450) 05/25/18 09:00 MPV 7.8 fL (7.4-10.4) 05/25/18 09:00 INR (Anticoag Therapy) 1.02 (0.77-1.02) 05/25/18 09:00 Sodium 136 mmol/L (135-145) 05/25/18 09:00 Potassium 3.5 mmol/L (3.5-5.0) 05/25/18 09:00 Chloride 99 mmol/L (101-111) L 05/25/18 09:00 Carbon Dioxide 30 mmol/L (22-32) 05/25/18 09:00 Anion Gap 7 mmol/L (2-11) 05/25/18 09:00 BUN 17 mg/dL (6-24) 05/25/18 09:00 Creatinine 1.10 mg/dL (0.51-0.95) H 05/25/18 09:00 Est GFR ( Amer) 57.5 (>60) 05/25/18 09:00 Est GFR (Non-Af Amer) 47.6 (>60) 05/25/18 09:00 BUN/Creatinine Ratio 15.5 (8-20) 05/25/18 09:00 Glucose 100 mg/dL (70-100) 05/25/18 09:00 Calcium 8.5 mg/dL (8.6-10.3) L 05/25/18 09:00
--- NOTE | 2018-05-25 10:34 | PN ---
Subjective Date of Service: 05/25/18 Interval History: Pt is PO day 1 R TKA. Hospitalist group is following for the management of medical conditions hypertension, hyperlipidemia, gastroesophageal reflux disease , and h/o TIA approximately 2 years ago. Upon seeing Ms. Hannah this a.m., she reports that she is in some discomfort concerning her R knee and that she had difficulty sleeping last night. She states that her pain is about 7/10, but that she feels better than she did yesterday. She states that she is eating well and she is drinking fluids. She is feeling well, and states that she is having no nausea, vomiting, headache, chest pain, difficulty swallowing, difficulty breathing, heartburn. Past Medical History: Unchanged from Admission Objective Active Medications: Acetaminophen (Tylenol Tab*) 975 mg PO Q8H RUPAL Albuterol (Ventolin Hfa Inhaler*) 2 puff INH Q4H PRN Bisacodyl (Dulcolax Supp*) 10 mg MD DAILY PRN Cyclobenzaprine HCl (Flexeril Tab*) 10 mg PO TID PRN Diphenhydramine HCl (Benadryl Iv*) 12.5 mg IV Q6H PRN Docusate Sodium (Colace Cap*) 100 mg PO BID RUPAL Enoxaparin Sodium (Lovenox(*)) 40 mg SUBCUT Q24H RUPAL Hydromorphone HCl (Dilaudid Inj1s*) 0.5 mg IV SLOW PU Q2H PRN Lactated Ringer's (Lactated Ringers 1000 Ml Bag*) 1,000 mls @ 100 mls/hr IV PER RATE RUPAL Lactulose (Lactulose*) 30 ml PO Q6H PRN Lovastatin (Mevacor (Nf)) 20 mg PO BEDTIME RUPAL Magnesium Hydroxide (Milk Of Magnesia Liq*) 30 ml PO BID RUPAL Magnesium Hydroxide (Milk Of Magnesia Liq*) 30 ml PO Q6H PRN Omeprazole (Prilosec Cap*) 40 mg PO QAM@0730 RUPAL Ondansetron HCl (Zofran Inj*) 4 mg IV Q6H PRN Ondansetron HCl (Zofran Tab*) 4 mg PO Q6H PRN Oxybutynin Chloride (Ditropan Tab*) 5 mg PO TID PRN Oxycodone HCl (Roxycodone Tab*) 10 mg PO Q4H PRN Oxycodone HCl (Oxycontin(*)) 10 mg PO BID RUPAL Oxycodone/Acetaminophen (Percocet 5/325 Tab*) 1 tab PO Q4H PRN Oxycodone/Acetaminophen (Percocet 5/325 Tab*) 2 tab PO Q4H PRN Polyethylene Glycol/Electrolytes (Miralax*) 17 gm PO DAILY PRN Tramadol HCl (Ultram*) 50 mg PO Q6H PRN Vital Signs: Temp Pulse Resp BP Pulse Ox 98.1 F 79 16 137/68 99 05/25/18 11:27 05/25/18 11:27 05/25/18 12:45 05/25/18 11:27 05/25/18 11:27 Oxygen Devices in Use Now: None Appearance: Pt is sitting up in bed finishing her breakfast; she is a/o x3. Eyes: No Scleral Icterus, PERRLA Ears/Nose/Mouth/Throat: NL Teeth, Lips, Gums, Mucous Membranes Moist Neck: NL Appearance and Movements; NL JVP, Trachea Midline Respiratory: Symmetrical Chest Expansion and Respiratory Effort, Clear to Auscultation Cardiovascular: NL Sounds; No Murmurs; No JVD, RRR Abdominal: NL Sounds; No Tenderness; No Distention Extremities: No Clubbing, Cyanosis, - - b/l LE nonpitting edema; sensation to light touch intact in b/l LE; cap refill <2sec in all extremities Neurological: Alert and Oriented x 3, NL Sensation Result Diagrams: 05/25/18 09:00 05/25/18 09:00 Additional Lab and Data: . Assess/Plan/Problems-Billing Assessment: Ms. Hannah is an 82 yof who is PO day1 RTKA. Hospitalist group is managing HTN , HLD, GERD, and h/o TIA. Blood pressure was stable overnight. - Patient Problems (1) Status post total right knee replacement Comment: -Post-op day 1; pain, activity, diet managed by ortho team -Hgb stable at 9.9 (2) HTN (hypertension) Code(s): I10 - ESSENTIAL (PRIMARY) HYPERTENSION SNOMED Code(s): 75366049 Comment: -Current BP is slightly elevated at 131/62. Pt is able to tolerate PO and is drinking fluids. Creatinine is slightly elevated at 1.10 and eGFR is 57.5 -Continue to hold Spironolactone/HCTZ and continue to monitor fluid status and blood pressure -Will recheck Cr, eGFR, and BP tomorrow and reassess restarting medication -Push PO fluid intake (3) Hyperlipidemia Comment: -Continue lovastatin (4) GERD (gastroesophageal reflux disease) Comment: -GERD symptoms managed with use of medication, and pt denies having symptoms currently -Continue Omeprazole (5) History of TIA (transient ischemic attack) Comment: -Restart aspirin 325mg per ortho instruction (6) DVT prophylaxis Code(s): YIJ6865 - SNOMED Code(s): 042039896 Comment: -Continue Lovenox SQ (7) Full code status Status and Disposition: Dispo as per ortho.
[2018-05-25] MEDS: Cyclobenzaprine TAB* 10 MG PO PRN ×2 (11:37→17:35)
[2018-05-25] MEDS: Enoxaparin(*) 40 MG/0.4 ML SYR SUBCUT SCH (11:38)
[2018-05-25] MEDS ORDERED: Warfarin TAB(*) 4 MG PO ONE (17:00)
[2018-05-25] MEDS: CMCS:Lovastatin (NF) 10 MG TAB PO SCH (20:25)
[2018-05-26] MEDS: Cyclobenzaprine TAB* 10 MG PO PRN (00:01)
[2018-05-26] MEDS: oxyCODONE/Acetamin 5/325 MG* TAB PO PRN ×4 (01:18→17:28)
[2018-05-26] MEDS: oxyCODONE TAB* 5 MG TAB PO PRN ×2 (03:15→12:32)
[2018-05-26] MEDS: Acetaminophen TAB* 325 MG PO SCH ×3 (04:35→17:30)
[2018-05-26] MEDS: Omeprazole CAP* 20 MG PO SCH (07:10)
[2018-05-26 07:29] LABS: INR 1.51 (0.77-1.02)
[2018-05-26 07:36] LABS: Hematocrit 29 % (35-47); Hemoglobin 9.4 g/dl (12.0-16.0); Mean Platelet Volume 8.3 fL (7.4-10.4); Platelet Count 192 10^3/ul (150-450)
[2018-05-26 07:49] LABS: BUN/Creatinine Ratio 15.5 (8-20); Calcium 8.9 mg/dL (8.6-10.3); EGFR Non-African American 64.9 (>60)
[2018-05-26] MEDS: oxyCODONE SR TAB(*) 10 MG TAB.SR PO SCH ×2 (08:28→20:36)
[2018-05-26] MEDS: Magnesium Hydroxide LIQ* 30 ML UDC PO SCH ×2 (08:28→20:38)
[2018-05-26] MEDS: Docusate CAP* 100 MG PO SCH ×2 (08:29→20:36)
--- NOTE | 2018-05-26 10:30 | PN ---
Subjective Date of Service: 05/26/18 Interval History: Pt post op RTKA. Her BP was elevated overnight, SBP between approximately 145- 160. She states that she is feeling "better today." She has been eating and drinking well, and was able to have a BM this morning. HR has been elevated overnight, reaching a maximum of 118. She denies shortness of breathe, headache , chest pain, blurry vision, n/v/d. Past Medical History: Unchanged from Admission Objective Active Medications: Acetaminophen (Tylenol Tab*) 975 mg PO Q8H RUPAL Albuterol (Ventolin Hfa Inhaler*) 2 puff INH Q4H PRN Bisacodyl (Dulcolax Supp*) 10 mg MT DAILY PRN Cyclobenzaprine HCl (Flexeril Tab*) 10 mg PO TID PRN Diphenhydramine HCl (Benadryl Iv*) 12.5 mg IV Q6H PRN Docusate Sodium (Colace Cap*) 100 mg PO BID RUPAL Enoxaparin Sodium (Lovenox(*)) 40 mg SUBCUT Q24H RUPAL Hydromorphone HCl (Dilaudid Inj1s*) 0.5 mg IV SLOW PU Q2H PRN Lactated Ringer's (Lactated Ringers 1000 Ml Bag*) 1,000 mls @ 100 mls/hr IV PER RATE RUPAL Lactulose (Lactulose*) 30 ml PO Q6H PRN Lovastatin (Mevacor (Nf)) 20 mg PO BEDTIME RUPAL Magnesium Hydroxide (Milk Of Magnesia Liq*) 30 ml PO BID RUPAL Magnesium Hydroxide (Milk Of Magnesia Liq*) 30 ml PO Q6H PRN Omeprazole (Prilosec Cap*) 40 mg PO QAM@0730 RUPAL Ondansetron HCl (Zofran Inj*) 4 mg IV Q6H PRN Ondansetron HCl (Zofran Tab*) 4 mg PO Q6H PRN Oxybutynin Chloride (Ditropan Tab*) 5 mg PO TID PRN Oxycodone HCl (Roxycodone Tab*) 10 mg PO Q4H PRN Oxycodone HCl (Oxycontin(*)) 10 mg PO BID RUPAL Oxycodone/Acetaminophen (Percocet 5/325 Tab*) 1 tab PO Q4H PRN Oxycodone/Acetaminophen (Percocet 5/325 Tab*) 2 tab PO Q4H PRN Pharmacy Profile Note (Coumadin Daily Reminder*) 1 note FOLLOW UP 1700 RUPAL Polyethylene Glycol/Electrolytes (Miralax*) 17 gm PO DAILY PRN Tramadol HCl (Ultram*) 50 mg PO Q6H PRN Vital Signs: Temp Pulse Resp BP Pulse Ox 98.9 F 102 18 144/81 98 05/26/18 07:17 05/26/18 07:17 05/26/18 09:50 05/26/18 07:17 05/26/18 08:00 Oxygen Devices in Use Now: None Appearance: Pt is resting comfortably with HOB elevated 45-degrees. She is awake and alert. Eyes: No Scleral Icterus Ears/Nose/Mouth/Throat: NL Teeth, Lips, Gums, Mucous Membranes Moist Neck: NL Appearance and Movements; NL JVP, Trachea Midline Respiratory: Symmetrical Chest Expansion and Respiratory Effort, Clear to Auscultation Cardiovascular: NL Sounds; No Murmurs; No JVD, RRR, No Edema Abdominal: NL Sounds; No Tenderness; No Distention, No Hepatosplenomegaly Extremities: No Edema, No Clubbing, Cyanosis Skin: No Rash or Ulcers Neurological: Alert and Oriented x 3 Result Diagrams: 05/26/18 07:11 05/26/18 07:11 Additional Lab and Data: . Assess/Plan/Problems-Billing Assessment: Ms. Hannah is an 82 yof who is PO day2 RTKA. Hospitalist group is managing HTN , HLD, GERD, and h/o TIA. Blood pressure was elevated overnight. - Patient Problems (1) Status post total right knee replacement Comment: -Pain, activity, diet managed by ortho team -Hgb stable at 9.4 (2) HTN (hypertension) Code(s): I10 - ESSENTIAL (PRIMARY) HYPERTENSION SNOMED Code(s): 19215980 Comment: -BP remained elevated overnight -Restart Spironolactone/HCTZ now (ordered) (3) Tachycardia Code(s): R00.0 - TACHYCARDIA, UNSPECIFIED SNOMED Code(s): 0247773 Comment: -Pt has elevated HR overnight and this morning; possibly d/t pain or blood loss anemia -EKG ordered -Mg level 1.8; 1g Mg Sulfate ordered -Stop IVF -Continue to monitor HR (4) Hyperlipidemia Comment: -Continue lovastatin (5) GERD (gastroesophageal reflux disease) Comment: -Continue Omeprazole (6) History of TIA (transient ischemic attack) Comment: -Restart aspirin 325mg once Lovenox is completed (7) Postoperative anemia due to acute blood loss Code(s): D62 - ACUTE POSTHEMORRHAGIC ANEMIA SNOMED Code(s): 84421483990759118 Comment: -Pt has tachycardia, but is stable -No need to transfuse (8) DVT prophylaxis Code(s): QLY4857 - SNOMED Code(s): 004229730 Comment: -Continue per ortho (9) Full code status Status and Disposition: Dispo to [facility] per ortho.
[2018-05-26] MEDS: Spironolactone/HCTZ 25-25 MG* 1 TAB PO SCH (11:26)
[2018-05-26] MEDS: Enoxaparin(*) 40 MG/0.4 ML SYR SUBCUT SCH (11:27)
--- NOTE | 2018-05-26 11:38 | PN ---
Progress Note - Progress Note Date of Service: 05/26/18 SOAP: Subjective: []Patient seen and examined at bedside. Her right knee pain is rated 5/10. Denies CP, SOB, dizziness, nausea. Overnight she had an elevated HR to 118, this morning it has been in the 90's and low 100's. Objective: []General: Well appearing, NAD RLE: Dressing changed, incision CDI, cryo unit in use, thigh is soft, DF/PF intact, DP2+, sensation intact distally BL calves supple and nontender without erythema, edema or palpable cords Assessment: []RTK POD 2 Dr Turpin 05/25 Plan: []WBAT PT/OT Lovenox bridge to coumadin. Coumadin 6 mg today. Will restart ASA 325 when bridge complete to have ASA in combination with coumadin. Has a bed at [facility] when medically ready I have ordered an EKG and discussed HR with medicine Vital Signs Temp 98.8 F 05/26/18 11:02 Pulse 104 05/26/18 11:24 Resp 18 05/26/18 11:28 BP 146/78 05/26/18 11:02 Pulse Ox 95 05/26/18 11:02 Intake & Output 05/25/18 05/26/18 05/26/18 18:59 06:59 18:59 Intake Total 1300 360 310 Output Total 1070 800 300 Balance 230 -440 10 Intake: IVPB 770 ABX - CEFAZOLIN 55 LR 715 Oral 530 360 310 Output: Urine 1070 800 300 Other: Estimated Void Small Date of Last Bowel 05/26/18 Movement # Bowel Movements 1 Estimated Stool Amount Small # Voids 1 Laboratory Last Values Hgb 9.4 g/dl (12.0-16.0) L 05/26/18 07:11 Hct 29 % (35-47) L 05/26/18 07:11 Plt Count 192 10^3/ul (150-450) 05/26/18 07:11 MPV 8.3 fL (7.4-10.4) 05/26/18 07:11 INR (Anticoag Therapy) 1.51 (0.77-1.02) H 05/26/18 07:10 Sodium 137 mmol/L (135-145) 05/26/18 07:11 Potassium 4.0 mmol/L (3.5-5.0) 05/26/18 07:11 Chloride 101 mmol/L (101-111) 05/26/18 07:11 Carbon Dioxide 28 mmol/L (22-32) 05/26/18 07:11 Anion Gap 8 mmol/L (2-11) 05/26/18 07:11 BUN 13 mg/dL (6-24) 05/26/18 07:11 Creatinine 0.84 mg/dL (0.51-0.95) 05/26/18 07:11 Est GFR ( Amer) 78.5 (>60) 05/26/18 07:11 Est GFR (Non-Af Amer) 64.9 (>60) 05/26/18 07:11 BUN/Creatinine Ratio 15.5 (8-20) 05/26/18 07:11 Glucose 116 mg/dL (70-100) H 05/26/18 07:11 Calcium 8.9 mg/dL (8.6-10.3) 05/26/18 07:11
[2018-05-26 13:56] LABS: Magnesium 1.8 mg/dL (1.9-2.7)
[2018-05-26] MEDS ORDERED: Magnesium Sulfate 1 GM IV* 1 GM/100 ML BAG IV ONE (14:19)
[2018-05-26] MEDS ORDERED: Warfarin TAB(*) 6 MG PO ONE (17:00)
[2018-05-26 17:20] LABS: Urine Appearance Clear; Urine Bacteria Absent (Absent); Urine Bilirubin Negative (Negative); Urine Blood 1+ (Negative); Urine Color Yellow; Urine Glucose Negative (Negative); Urine Ketones Negative (Negative); Urine Nitrite Negative (Negative); Urine Protein Negative (Negative); Urine Red Blood Cell 2+(6-10/hpf) (Absent); Urine Specific Gravity 1.009 (1.010-1.030); Urine Urobilinogen Negative (Negative); Urine White Blood Cell Trace(0-5/hpf) (Absent)
[2018-05-26] MEDS: CMCS:Lovastatin (NF) 10 MG TAB PO SCH (20:36)
[2018-05-27] MEDS: oxyCODONE/Acetamin 5/325 MG* TAB PO PRN ×2 (02:08→08:57)
[2018-05-27] MEDS: Acetaminophen TAB* 325 MG PO SCH ×2 (02:10→10:23)
[2018-05-27] MEDS: oxyCODONE TAB* 5 MG TAB PO PRN ×2 (03:40→12:23)
[2018-05-27 06:19] LABS: Hematocrit 31 % (35-47); Hemoglobin 10.1 g/dl (12.0-16.0); Mean Platelet Volume 8.3 fL (7.4-10.4); Platelet Count 194 10^3/ul (150-450)
[2018-05-27 06:32] LABS: INR 1.72 (0.77-1.02)
[2018-05-27 06:43] LABS: BUN/Creatinine Ratio 13.3 (8-20); Calcium 9.3 mg/dL (8.6-10.3); EGFR Non-African American 65.8 (>60); Magnesium 1.9 mg/dL (1.9-2.7); Potassium 3.8 mmol/L (3.5-5.0)
[2018-05-27] MEDS ORDERED: Magnesium Sulfate 1 GM IV* 1 GM/100 ML BAG IV ONE (08:13)
[2018-05-27] MEDS: Docusate CAP* 100 MG PO SCH (08:56)
[2018-05-27] MEDS: Omeprazole CAP* 20 MG PO SCH (08:56)
[2018-05-27] MEDS: Spironolactone/HCTZ 25-25 MG* 1 TAB PO SCH (08:56)
[2018-05-27] MEDS: oxyCODONE SR TAB(*) 10 MG TAB.SR PO SCH (08:57)
[2018-05-27] MEDS: Magnesium Hydroxide LIQ* 30 ML UDC PO SCH (09:04)
--- NOTE | 2018-05-27 09:35 | PN ---
Subjective Date of Service: 05/27/18 Interval History: Pt is sitting up eating breakfast. She states that she is feeling less pain in the knee with each passing day. She remains slightly tachycardic, although her HR has decreased into the 100's from 110's since yesterday. Pt denies CP, SOB, n/v, cough, fever/chills. She states that she felt like she was wheezing earlier, but is not any longer. Past Medical History: Unchanged from Admission Objective Active Medications: Acetaminophen (Tylenol Tab*) 975 mg PO Q8H RUPAL Albuterol (Ventolin Hfa Inhaler*) 2 puff INH Q4H PRN Bisacodyl (Dulcolax Supp*) 10 mg [place] DAILY PRN Cyclobenzaprine HCl (Flexeril Tab*) 10 mg PO TID PRN Diphenhydramine HCl (Benadryl Iv*) 12.5 mg IV Q6H PRN Docusate Sodium (Colace Cap*) 100 mg PO BID RUPAL Enoxaparin Sodium (Lovenox(*)) 40 mg SUBCUT Q24H RUPAL HCTZ/Spironolactone (Aldactazide 25-25*) 1 tab PO DAILY RUPAL Hydromorphone HCl (Dilaudid Inj1s*) 0.5 mg IV SLOW PU Q2H PRN Lactulose (Lactulose*) 30 ml PO Q6H PRN Lovastatin (Mevacor (Nf)) 20 mg PO BEDTIME RUPAL Magnesium Hydroxide (Milk Of Magnesia Liq*) 30 ml PO BID RUPAL Magnesium Hydroxide (Milk Of Magnesia Liq*) 30 ml PO Q6H PRN Omeprazole (Prilosec Cap*) 40 mg PO QAM@0730 RUPAL Ondansetron HCl (Zofran Inj*) 4 mg IV Q6H PRN Ondansetron HCl (Zofran Tab*) 4 mg PO Q6H PRN Oxybutynin Chloride (Ditropan Tab*) 5 mg PO TID PRN Oxycodone HCl (Roxycodone Tab*) 10 mg PO Q4H PRN Oxycodone HCl (Oxycontin(*)) 10 mg PO BID RUPAL Oxycodone/Acetaminophen (Percocet 5/325 Tab*) 1 tab PO Q4H PRN Oxycodone/Acetaminophen (Percocet 5/325 Tab*) 2 tab PO Q4H PRN Pharmacy Profile Note (Coumadin Daily Reminder*) 1 note FOLLOW UP 1700 RUPAL Polyethylene Glycol/Electrolytes (Miralax*) 17 gm PO DAILY PRN Tramadol HCl (Ultram*) 50 mg PO Q6H PRN Vital Signs - 8 hr Vital Signs: Temp Pulse Resp BP Pulse Ox 98.7 F 107 17 142/67 100 05/27/18 07:23 05/27/18 07:23 05/27/18 08:57 05/27/18 07:23 05/27/18 07:23 Oxygen Devices in Use Now: None Appearance: Pt is sitting up in a chair eating breakfast with her R leg resting on a stool. She is in no acute distress. Eyes: No Scleral Icterus, PERRLA Ears/Nose/Mouth/Throat: NL Teeth, Lips, Gums, Mucous Membranes Moist Neck: NL Appearance and Movements; NL JVP, Trachea Midline, No Thyroid Enlargement, Masses Respiratory: Symmetrical Chest Expansion and Respiratory Effort, Clear to Auscultation - No wheezes, rales, rhonchi. Cardiovascular: NL Sounds; No Murmurs; No JVD, No Edema, - - Pt is tachycardic. Abdominal: NL Sounds; No Tenderness; No Distention Extremities: No Edema, No Clubbing, Cyanosis Skin: - - Warm and dry. Neurological: Alert and Oriented x 3 Result Diagrams: 05/27/18 05:24 05/27/18 05:24 Additional Lab and Data: . Assess/Plan/Problems-Billing Assessment: Ms. Hannah is an 82 yof who is PO day3 RTKA. Hospitalist group is managing HTN , tachycardia, HLD, GERD, and h/o TIA. Blood pressure remains tachycardic, but has decreased from previously. - Patient Problems (1) Status post total right knee replacement Comment: -Pain, activity, diet managed by ortho team -Hgb stable at 10.1 (2) HTN (hypertension) Code(s): I10 - ESSENTIAL (PRIMARY) HYPERTENSION SNOMED Code(s): 94455131 Comment: -BP trending down -Continue Spironolactone/HCTZ (3) Tachycardia Code(s): R00.0 - TACHYCARDIA, UNSPECIFIED SNOMED Code(s): 5913336 Comment: -HR has decreased in last 24 hours by appx 10 bpm. Interventions: Mg 1g. Also , pt had increase in Hgb from 9.4 to 10.1, both of which may have contributed to HR improvement. UA, CXR, EKG revealed no cause of tachycardia. Temperature and oxygen saturation WNL. -Check HR appx 30min after next requested dose of pain rx to assess for pain as contributor of tachycardia -Mg level 1.9; 1g Mg Sulfate ordered -Continue to monitor HR for improvement throughout the day. If improved, pt may be d/c'd to [facility]. (4) Hyperlipidemia Comment: -Continue lovastatin (5) GERD (gastroesophageal reflux disease) Comment: -Pt remains asymptomatic -Continue Omeprazole (6) History of TIA (transient ischemic attack) Comment: -Restart aspirin 325mg once Lovenox is completed (7) Postoperative anemia due to acute blood loss Code(s): D62 - ACUTE POSTHEMORRHAGIC ANEMIA SNOMED Code(s): 79576341682379870 Comment: -Pt has tachycardia, but is stable -Hgb 10.1; no need to transfuse (8) DVT prophylaxis Code(s): NNZ8716 - SNOMED Code(s): 069439630 Comment: -Continue per ortho (9) Full code status Status and Disposition: Dispo to [facility] per ortho.
--- NOTE | 2018-05-27 10:39 | PN ---
Progress Note - Progress Note Date of Service: 05/27/18 SOAP: Subjective: []Patient is seen at bedside this am. She feels well. Her heart rates have been running in the low 100's throughout her hospital stay but she has been worked up by medicine- all tests negative. She denies feeling palpitations, SOB , dizzy, chest pain. She feels ready for transfer to [facility] for rehab today. Objective: [] Vital Signs Temp 98.7 F 05/27/18 07:23 Pulse 107 05/27/18 07:23 Resp 17 05/27/18 08:57 BP 142/67 05/27/18 07:23 Pulse Ox 100 05/27/18 07:23 Intake & Output 05/26/18 05/27/18 05/27/18 18:59 06:59 18:59 Intake Total 1446 480 120 Output Total 1050 1325 100 Balance 396 -845 20 Intake: IV Fluids 616 LR 511 mag 105 Oral 830 480 120 Output: Urine 1050 1325 100 Other: Date of Last Bowel 05/27/18 Movement # Bowel Movements 2 Estimated Stool Amount Medium Laboratory Results - last 24 hr 05/26/18 05/26/18 05/27/18 07:11 16:50 05:24 Hgb 10.1 L Hct 31 L Plt Count 194 MPV 8.3 INR (Anticoag Therapy) Sodium 137 Potassium 4.0 Chloride 101 Carbon Dioxide 28 Anion Gap 8 BUN 13 Creatinine 0.84 Est GFR ( Amer) 78.5 Est GFR (Non-Af Amer) 64.9 BUN/Creatinine Ratio 15.5 Glucose 116 H Calcium 8.9 Magnesium 1.8 L Urine Color Yellow Urine Appearance Clear Urine pH 6.0 Ur Specific [place] 1.009 L Urine Protein Negative Urine Ketones Negative Urine Blood 1+ A Urine Nitrate Negative Urine Bilirubin Negative Urine Urobilinogen Negative Ur Leukocyte Esterase Negative Urine WBC (Auto) Trace(0-5/hpf) Urine RBC (Auto) 2+(6-10/hpf) A Ur Squamous Epith Cells Present A Urine Bacteria Absent Urine Glucose Negative 05/27/18 05/27/18 05:24 05:24 Hgb Hct Plt Count MPV INR (Anticoag Therapy) 1.72 H Sodium 137 Potassium 3.8 Chloride 100 L Carbon Dioxide 29 Anion Gap 8 BUN 11 Creatinine 0.83 Est GFR ( Amer) 79.6 Est GFR (Non-Af Amer) 65.8 BUN/Creatinine Ratio 13.3 Glucose 93 Calcium 9.3 Magnesium 1.9 Urine Color Urine Appearance Urine pH Ur Specific [place] Urine Protein Urine Ketones Urine Blood Urine Nitrate Urine Bilirubin Urine Urobilinogen Ur Leukocyte Esterase Urine WBC (Auto) Urine RBC (Auto) Ur Squamous Epith Cells Urine Bacteria Urine Glucose Right knee incision is healing well, no drainage, no erythema calf NT and soft +DF/PF right ankle sensation intact distally Assessment: []s/p Right total knee arthroplasty POD #3 Plan: []PT WBAT RLE Lovenox today, Coumadin dose today prior to discharge, 4 mg and continue Coumadin at SNF with target INR 2.0-2.5. Follow up as scheduled with Dr. Turpin 10-14 days in clinic.
--- NOTE | 2018-05-27 11:45 | DS ---
AMENDED REPORT NOW INCLUDES DESIGNATED COSIGNER DATE OF ADMISSION: 05/24/2018. DATE OF DISCHARGE: 05/27/2018. ATTENDING PHYSICIAN: Dr. Alysha Turpin * (dictated by HERMINIO Colon). 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 DISCHARGE DIAGNOSIS: Severe end-stage degenerative osteoarthritis of the right knee joint with valgus deformity. SURGERY PERFORMED: Right total knee arthroplasty. HOSPITAL COURSE: The patient is an 82-year-old female with years of increasingly severe right knee pain. She developed a valgus deformity and her x -rays revealed bone on bone arthritis. She failed conservative management with anti- inflammatories, pain medication, interarticular cortisone injections, and physical therapy. Due to increased pain and decreased quality of life, she elected to proceed with right total knee arthroplasty. She was taken to the operating room under the care of Dr. Alysha Turpin on the date of 05/24/2018. She tolerated the procedure well and left the operating room in stable condition. Postoperatively, she progressed satisfactorily with her physical therapy and occupational therapy goals, bearing weight as tolerated on the right lower extremity. The patient was noted to have vital signs with mild tachycardia, running in the low 100s throughout her hospital stay. She was seen by the Medical Service Hospitalist in-house and had work-up with a urinalysis, chest x- ray, EKG, all which were negative for reasons for her low grade tachycardia. The patient's temperature and saturations also remained within normal limits throughout her hospital stay. The patient, upon evaluation today, continues to remain asymptomatic. She feels ready for continued rehabilitation at [facility]. CONDITION ON DISCHARGE: The patient is alert and oriented times three, in no acute distress. Her vital signs reveal a temperature of 98.7, pulse 107, respiratory rate 18, O2 sat 100 percent on room air, blood pressure 142/67. LABORATORY DATA: Current laboratory studies reveal a hematocrit of 31, hemoglobin 10.1. Her INR is 1.72, currently on Coumadin therapy and Lovenox for bridging. Her right knee incision reveals intact nylon sutures without erythema, drainage, or evidence of infection. Her calf is soft and nontender. Her neurovascular status is intact. She has active dorsiflexion and plantarflexion of the right ankle without pain. PLAN: Discharge to [facility] 05/27/2018. She may continue to bear weight as tolerated on the right lower extremity. She will receive her dose of Lovenox 40 mg subcu today prior to her discharge. She will receive Coumadin 4 mg p.o. today. I recommend she continue with daily INR and/ or as ordered by medical staff at [facility] who will continue to monitor her INR. We recommend her INR to be between 2.0 and 2.5 for DVT prophylaxis. She may shower. Light dressing to the right knee as needed. FOLLOW-UP: Recommend a follow-up in the office in 10 to 14 days for suture removal. HERMINIO BEAVER [id number]/[facility] #: [id number] MTDD
[2018-05-27] MEDS: Enoxaparin(*) 40 MG/0.4 ML SYR SUBCUT SCH (12:23)
[2018-05-27 13:24] VITALS: BP 113/69
[2018-05-27] MEDS ORDERED: Warfarin TAB(*) 4 MG PO ONE (17:00)
== END 2018-05-27 13:30 | DRG 470 ==
LOC: AA 06:54 → SSU 10:14
PROVIDERS: ADMIT Orthopaedic Surgery Adult Reconstructive Orthopaedic Surgery; ATTEND Orthopaedic Surgery Adult Reconstructive Orthopaedic Surgery
PROC: 0SRC0J9 Replacement of Right Knee Joint with Synthetic Substitute, Cemented, Open Approach (ICD-10-PCS; principal; 2018-05-24 07:30)
DX: M17.11 Unilateral primary osteoarthritis, right knee (principal); D62 Acute posthemorrhagic anemia; R00.0 Tachycardia, unspecified; I10 Essential (primary) hypertension; K21.9 Gastro-esophageal reflux disease without esophagitis; Z96.642 Presence of left artificial hip joint; M25.762 Osteophyte, left knee; M21.061 Valgus deformity, not elsewhere classified, right knee; M25.461 Effusion, right knee; E78.5 Hyperlipidemia, unspecified; G43.909 Migraine, unspecified, not intractable, without status migrainosus; Z90.710 Acquired absence of both cervix and uterus; G89.29 Other chronic pain; Z80.0 Family history of malignant neoplasm of digestive organs; Z82.0 Family history of epilepsy and other diseases of the nervous system; Z86.73 Personal history of transient ischemic attack (TIA), and cerebral infarction without residual deficits; Z88.5 Allergy status to narcotic agent; Z85.038 Personal history of other malignant neoplasm of large intestine; Z72.89 Other problems related to lifestyle; Z79.01 Long term (current) use of anticoagulants; Z98.51 Tubal ligation status; Z87.891 Personal history of nicotine dependence
CPT/HCPCS: 36415; 71045; 80048; 81003; 81015; 83735; 85014; 85018; 85049; 85610; 87086; 88305; 88311; 93005; A9270-GY; C1776; G8978-GP-CJ; G8979-GP-CI; G8987-GO-CK; G8988-GO-CI; J0690; J1100; J1170; J1650; J1885; J2250; J2405; J2704; J2795; J3010; J3475

== ENCOUNTER 2021-02-17 19:07 | Observation (INO) ==
[2021-02-17 22:05] LABS: Magnesium 1.7 mg/dL (1.9-2.7)
[2021-02-17 22:06] LABS: ABS Eosinophils 0.2 10^3/ul (0-0.6); ABS Lymphocytes 1.4 10^3/ul (1.0-4.8); ABS Monocytes 0.3 10^3/ul (0-0.8); ABS Neutrophils 2.8 10^3/ul (1.5-7.7); Eosinophil % 4.7 %; Hematocrit 36 % (35-47); Hemoglobin 11.7 g/dL (12.0-16.0); Lymphocyte % 29.5 %; Mean Corpuscular HGB Conc 32 g/dL (31-36); Mean Corpuscular Hemoglobin 29 pg (27-31); Mean Corpuscular Volume 89 fL (80-97); Mean Platelet Volume 8.3 fL (7.4-10.4); Platelet Count 181 10^3/uL (150-450); Red Blood Count 4.11 10^6 /uL (3.70-4.87); Red Cell Distribution Width 14 % (10-15); White Blood Count 4.9 10^3/uL (3.5-10.8)
[2021-02-17 22:11] LABS: Albumin/Globulin Ratio 1.3 (1-3); Globulin 3.1 g/dL (2-4); Total Protein 7.1 g/dL (6.4-8.9)
[2021-02-17 22:19] LABS: Activated Partial Thrombo Time 32.3 seconds (26.0-38.0); INR 1.03 (0.86-1.15)
[2021-02-17 22:21] LABS: TSH Ultra Thyroid Stim Horm 0.87 mcIU/mL (0.34-5.60)
[2021-02-17 22:22] LABS: Calcium 9.1 mg/dL (8.6-10.3); EGFR African American 45.9 (>60); EGFR Non-African American 37.9 (>60); Potassium 4.4 mmol/L (3.5-5.0); Total Bilirubin 0.3 mg/dL (0.2-1.0)
[2021-02-17] MEDS ORDERED: Iodixanol (CONTRAST) 320 MG/ML 100 ML SDV IV ONE (23:49)
[2021-02-18] MEDS ORDERED: Lactated Ringers 1000 ml BAG 1,000 ML IV ONE (00:12)
[2021-02-18] MEDS ORDERED: Magnesium Sulfate 2 gm BAG 2 GM/50 ML BAG IVPB ONE (00:12)
[2021-02-18] MEDS ORDERED: Albuterol HFA INHALER 8 gm MDI INH PRN (00:15)
[2021-02-18 01:13] LABS: Rapid COVID-19 Molecular Undetected (Undetected)
[2021-02-18] MEDS: oxyCODONE/Acetamin 5/325 mg TAB PO PRN ×3 (04:31→21:42)
[2021-02-18] MEDS: Heparin 5000 UNITS/ML 1 mL VIAL SUBCUT SCH ×3 (05:46→21:42)
[2021-02-18 07:36] LABS: Calcium 9.5 mg/dL (8.6-10.3); EGFR African American 48.8 (>60); EGFR Non-African American 40.4 (>60); Potassium 4.4 mmol/L (3.5-5.0)
[2021-02-18 07:41] LABS: ABS Basophils 0.1 10^3/ul (0-0.2); ABS Eosinophils 0.4 10^3/ul (0-0.6); ABS Lymphocytes 1.9 10^3/ul (1.0-4.8); ABS Monocytes 0.4 10^3/ul (0-0.8); ABS Neutrophils 3.3 10^3/ul (1.5-7.7); Eosinophil % 6.1 %; Hematocrit 39 % (35-47); Hemoglobin 12.6 g/dL (12.0-16.0); Lymphocyte % 31.4 %; Mean Corpuscular HGB Conc 33 g/dL (31-36); Mean Corpuscular Hemoglobin 29 pg (27-31); Mean Corpuscular Volume 88 fL (80-97); Nucleated Red Blood Cells % 0.1; Platelet Count 169 10^3/uL (150-450); Red Blood Count 4.36 10^6 /uL (3.70-4.87); Red Cell Distribution Width 14 % (10-15); White Blood Count 6.1 10^3/uL (3.5-10.8)
[2021-02-18] MEDS ORDERED: Perflutren Lipid Microsphere 3 ML VIAL ONE (07:58)
[2021-02-18] MEDS: LOVASTATIN 10 MG PO SCH (09:25)
[2021-02-18 09:44] LABS: Magnesium 2.2 mg/dL (1.9-2.7)
[2021-02-18 14:18] LABS: Urine Appearance Clear; Urine Bilirubin Negative (Negative); Urine Blood Negative (Negative); Urine Glucose Negative (Negative); Urine Ketones Negative (Negative); Urine Nitrite Negative (Negative); Urine Protein Negative (Negative); Urine Specific Gravity 1.025 (1.002-1.030); Urine Urobilinogen Negative (Negative)
[2021-02-18 14:36] LABS: Urine Creatinine Concentration 82.71 mg/dL
[2021-02-18 16:43] LABS: Urine Color Yellow
[2021-02-19] MEDS: Heparin 5000 UNITS/ML 1 mL VIAL SUBCUT SCH ×3 (05:58→20:32)
[2021-02-19] MEDS: oxyCODONE/Acetamin 5/325 mg TAB PO PRN ×2 (05:59→20:33)
[2021-02-19] MEDS: LOVASTATIN 10 MG PO SCH (08:48)
[2021-02-19] MEDS ORDERED: NS 0.9% 500 ml BAG 500 ML IV ONE (15:53)
[2021-02-19 16:56] LABS: Free T4 0.85 ng/dL (0.61-1.12)
[2021-02-19 16:57] LABS: Free T3 2.7 pg/mL (2.5-3.9)
[2021-02-20] MEDS: oxyCODONE/Acetamin 5/325 mg TAB PO PRN ×2 (02:50→08:51)
[2021-02-20] MEDS: Heparin 5000 UNITS/ML 1 mL VIAL SUBCUT SCH (05:15)
[2021-02-20] MEDS ORDERED: NS 0.9% 1000 ml BAG 1,000 ML IV SCH (07:30)
[2021-02-20] MEDS: LOVASTATIN 10 MG PO SCH (08:52)
[2021-02-20 09:08] VITALS: BP 118/58
== END 2021-02-20 14:45 | disposition home or self-care (01) ==
LOC: MEDTELE 19:07 → ED 19:07 → MEDTELE 02-18 02:50
PROVIDERS: ADMIT Internal Medicine; ATTEND Internal Medicine

== ENCOUNTER 2021-03-18 21:13 | Observation (INO) ==
[2021-03-18 22:06] LABS: ABS Basophils 0.1 10^3/ul (0-0.2); ABS Eosinophils 0.1 10^3/ul (0-0.6); ABS Lymphocytes 1.3 10^3/ul (1.0-4.8); ABS Monocytes 0.4 10^3/ul (0-0.8); ABS Neutrophils 2.4 10^3/ul (1.5-7.7); Hematocrit 33 % (35-47); Hemoglobin 11.2 g/dL (12.0-16.0); Lymphocyte % 30.4 %; Mean Corpuscular HGB Conc 34 g/dL (31-36); Mean Corpuscular Hemoglobin 29 pg (27-31); Mean Corpuscular Volume 86 fL (80-97); Mean Platelet Volume 8.1 fL (7.4-10.4); Nucleated Red Blood Cells % 0.1; Platelet Count 213 10^3/uL (150-450); Red Blood Count 3.88 10^6 /uL (3.70-4.87); Red Cell Distribution Width 15 % (10-15); White Blood Count 4.4 10^3/uL (3.5-10.8)
[2021-03-18 22:09] LABS: Calcium 9.1 mg/dL (8.6-10.3)
[2021-03-18 22:11] LABS: Troponin I 0.01 ng/mL (<0.03)
[2021-03-18 22:25] LABS: Potassium 4.3 mmol/L (3.5-5.0)
[2021-03-18] MEDS ORDERED: Labetalol IV 5 MG/ML 20 ml VIAL IV PUSH ONE (22:47)
[2021-03-18] MEDS ORDERED: Ondansetron 4 mg VIAL 2 MG/ML 2 ml VIAL IV PRN (23:24)
[2021-03-18] MEDS ORDERED: Albuterol HFA INHALER 8 gm MDI INH PRN (23:28)
[2021-03-19] MEDS: Enoxaparin 40 MG/0.4 ML SYR SUBCUT SCH ×2 (00:01→21:45)
[2021-03-19 00:39] LABS: Rapid COVID-19 Molecular Undetected (Undetected)
[2021-03-19] MEDS: oxyCODONE/Acetamin 5/325 mg TAB PO PRN ×3 (06:14→21:43)
[2021-03-19 06:49] LABS: ABS Eosinophils 0.2 10^3/ul (0-0.6); ABS Lymphocytes 1.2 10^3/ul (1.0-4.8); ABS Monocytes 0.4 10^3/ul (0-0.8); ABS Neutrophils 2.4 10^3/ul (1.5-7.7); Hematocrit 38 % (35-47); Hemoglobin 12.6 g/dL (12.0-16.0); Lymphocyte % 28.2 %; Mean Corpuscular HGB Conc 33 g/dL (31-36); Mean Corpuscular Hemoglobin 29 pg (27-31); Mean Corpuscular Volume 87 fL (80-97); Nucleated Red Blood Cells % 0.2; Platelet Count 220 10^3/uL (150-450); Red Blood Count 4.38 10^6 /uL (3.70-4.87); Red Cell Distribution Width 15 % (10-15); White Blood Count 4.1 10^3/uL (3.5-10.8)
[2021-03-19 06:59] LABS: Calcium 9.9 mg/dL (8.6-10.3); Potassium 3.8 mmol/L (3.5-5.0)
[2021-03-19] MEDS ORDERED: Perflutren Lipid Microsphere 3 ML VIAL ONE (07:46)
[2021-03-19] MEDS: NS 0.9% 1000 ml BAG 1,000 ML IV SCH ×2 (08:36→23:35)
[2021-03-19] MEDS: CMC: LINACLOTIDE 72 MCG CAP (NF) PO SCH (08:38)
[2021-03-19] MEDS: Fluticasone NASAL SPRAY 50MCG 16 gm SPRAY BTL INTRANASAL SCH (08:39)
[2021-03-19] MEDS ORDERED: Flu vaccine *QUAD* 2021-22* 0.5 ML SYRINGE IM ONE (09:00)
[2021-03-19] MEDS ORDERED: Regadenoson 0.4 MG/5 ML SYRINGE ONE (14:10)
[2021-03-19] MEDS ORDERED: CMC:Lovastatin 10 mg TAB (NF) PO SCH (17:30)
[2021-03-20 05:39] LABS: Hematocrit 36 % (35-47); Hemoglobin 11.7 g/dL (12.0-16.0); Mean Corpuscular HGB Conc 33 g/dL (31-36); Mean Corpuscular Hemoglobin 29 pg (27-31); Mean Corpuscular Volume 88 fL (80-97); Platelet Count 217 10^3/uL (150-450); Red Blood Count 4.09 10^6 /uL (3.70-4.87); Red Cell Distribution Width 15 % (10-15); White Blood Count 4.2 10^3/uL (3.5-10.8)
[2021-03-20 05:49] LABS: Calcium 9.4 mg/dL (8.6-10.3)
[2021-03-20 05:54] LABS: HDL Cholesterol 65.4 mg/dL
[2021-03-20] MEDS: oxyCODONE/Acetamin 5/325 mg TAB PO PRN (07:43)
[2021-03-20] MEDS: Fluticasone NASAL SPRAY 50MCG 16 gm SPRAY BTL INTRANASAL SCH (07:45)
[2021-03-20] MEDS: CMC: LINACLOTIDE 72 MCG CAP (NF) PO SCH (07:48)
[2021-03-20] MEDS: NS 0.9% 1000 ml BAG 1,000 ML IV SCH (10:51)
[2021-03-20 11:36] VITALS: BP 135/65
== END 2021-03-20 15:45 | disposition home or self-care (01) ==
LOC: ED 21:13 → MEDTELE 21:13 → SUATTDRO 23:24 → MEDTELE 03-19 01:36
PROVIDERS: ADMIT Internal Medicine; ATTEND Internal Medicine

== ENCOUNTER 2023-07-28 10:28 | Observation (INO) ==
[2023-07-28 11:22] LABS: ABS Basophils 0.1 10^3/uL (0.0-0.1); ABS Lymphocytes 0.8 10^3/uL (1.0-4.8); ABS Monocytes 0.5 10^3/uL (0.0-0.9); ABS Neutrophils 8.6 10^3/uL (1.5-7.6); ABS Nucleated RBC 0.01 10^3/ul; Eosinophil % 0.4 %; Hematocrit 38.9 % (35-45); Hemoglobin 12.8 g/dL (11.5-14.3); Mean Corpuscular Hemoglobin 28.7 pg (27-33); Mean Corpuscular Hgb Conc 32.9 g/dL (31-36); Mean Corpuscular Volume 87.2 fL (80-97); Mean Platelet Volume 7.8 fL (7.5-11.2); Nucleated Red Blood Cells % 0.1 %/100WBC (0.0-0.8); Platelet Count 243 10^3/uL (150-450); Red Blood Count 4.46 10^6/uL (3.63-4.92); Red Cell Distribution Width 15.4 % (12-17)
[2023-07-28 12:00] LABS: Albumin 4.6 g/dL (3.2-5.2); Albumin/Globulin Ratio 1.6 (1-3); C Reactive Protein 17.96 mg/L (<8.01); Creatinine, Serum 2.14 mg/dL (0.51-0.95); Globulin 2.9 g/dL (2-4); Potassium 4.8 mmol/L (3.5-5.0); Total Bilirubin 0.6 mg/dL (0.2-1.0); Total Protein 7.5 g/dL (6.4-8.9); eGFR CKD-EPI 21.7 (>60)
[2023-07-28 12:03] LABS: Urine Appearance Extra Turbid; Urine Bilirubin Negative (Negative); Urine Blood 1+ (Negative); Urine Glucose Negative (Negative); Urine Ketones Negative (Negative); Urine Nitrite 2+ (Negative); Urine Protein 2+ (>=100 mg/dL) (Negative); Urine Urobilinogen Negative (Negative)
[2023-07-28 12:11] LABS: Urine Color Light-Yellow
[2023-07-28 12:15] LABS: Urine Bacteria 2+ /HPF (Absent); Urine Red Blood Cell 3+(>10/hpf) /HPF (0-Trace); Urine White Blood Cell 3+(>20/hpf) /HPF (0-Trace)
[2023-07-28] MEDS: Lactated Ringers SEPSIS* BAG 1,640 ML IV ONE (12:36)
[2023-07-28] MEDS: cefTRIAXone 1 gm/50 mL D5W 1 GM/50 ML BAG IV ONE (14:07)
[2023-07-28 14:49] LABS: High Sensitivity Troponin 1 Hr 8 pg/mL (<15)
[2023-07-28] MEDS ORDERED: oxyCODONE/Acetamin 5/325 mg TAB PO PRN (16:23)
[2023-07-28 17:57] LABS: Magnesium 2.1 mg/dL (1.9-2.7)
[2023-07-28] MEDS: Senna TAB 8.6 mg TAB PO SCH (17:59)
[2023-07-28] MEDS: Enoxaparin 30 MG/0.3 ML SYR SUBCUT SCH (17:59)
[2023-07-28] MEDS: Polyethylene Glycol 3350 17 GM PACKET PO SCH (17:59)
[2023-07-28] MEDS: Lactated Ringers 1000 ml BAG 1,000 ML IV SCH (18:00)
[2023-07-28] MEDS: oxyCODONE/Acetamin 5/325 mg TAB PO PRN (20:17)
[2023-07-29 06:29] LABS: Calcium 8.9 mg/dL (8.6-10.3); Creatinine, Serum 1.02 mg/dL (0.51-0.95); Potassium 4.6 mmol/L (3.5-5.0); eGFR CKD-EPI 52.9 (>60)
[2023-07-29] MEDS: Spironolactone/HCTZ 25-25 mg PO SCH (10:28)
[2023-07-29] MEDS: cefTRIAXone 1 gm/50 mL D5W 1 GM/50 ML BAG IV SCH (14:24)
[2023-07-29] MEDS: oxyCODONE/Acetamin 5/325 mg TAB PO PRN (18:59)
[2023-07-30 14:00] VITALS: BP 131/60
== END 2023-07-30 17:40 | disposition home or self-care (01) ==
LOC: EDHOLD 10:28 → ED 10:28 → MED 18:12
PROVIDERS: ADMIT Internal Medicine; ATTEND Internal Medicine

== ENCOUNTER 2024-04-20 16:26 | Observation (INO) ==
[2024-04-20 19:08] LABS: ABS Lymphocytes 0.8 10^3/uL (1.0-4.8); ABS Monocytes 0.7 10^3/uL (0.0-0.9); ABS Neutrophils 12.3 10^3/uL (1.5-7.6); Eosinophil % 0.1 %; Hemoglobin 13.5 g/dL (11.5-14.3); Lymphocyte % 5.5 %; Mean Corpuscular Hemoglobin 28.8 pg (27-33); Mean Corpuscular Hgb Conc 32.1 g/dL (31-36); Mean Corpuscular Volume 89.8 fL (80-97); Platelet Count Platelets clumped. 10^3/uL (150-450); Red Blood Count 4.68 10^6/uL (3.63-4.92); Red Cell Distribution Width 14.6 % (12-17); White Blood Count 13.8 10^3/uL (3.8-11.8)
[2024-04-20 19:45] LABS: Albumin 4.4 g/dL (3.2-5.2); Albumin/Globulin Ratio 1.6 (1-3); Alkaline Phosphatase 39 U/L (35-149); Anion Gap 10 mmol/L (2-16); Blood Urea Nitrogen 15 mg/dL (6-24); CO2 Carbon Dioxide 28 mmol/L (22-32); Calcium 9.8 mg/dL (8.6-10.3); Chloride 96 mmol/L (101-111); Creatinine, Serum 0.97 mg/dL (0.51-0.95); Globulin 2.8 g/dL (2-4); Glucose 99 mg/dL (70-100); Potassium 4.4 mmol/L (3.5-5.0); Sodium 134 mmol/L (135-145); Total Bilirubin 0.6 mg/dL (0.2-1.0); Total Protein 7.2 g/dL (6.4-8.9); eGFR CKD-EPI 56.2 (>60)
[2024-04-20 19:46] LABS: ALT 11 U/L (7-52); AST 15 U/L (13-39); C Reactive Protein 1.65 mg/L (<8.01); Lipase < 10 U/L (11.0-82.0)
[2024-04-20] MEDS: Lidocaine 2% JELLY 6 ML Topical TOPICAL ONE (20:47)
[2024-04-20] MEDS: Al Hydrox/Mg Hydrox/Simet LIQ 30 ML UDC PO ONE (20:49)
[2024-04-21 02:09] LABS: TSH Ultra Thyroid Stim Horm 0.33 mcIU/mL (0.34-5.60)
[2024-04-21] MEDS: Lactated Ringers 1000 ml BAG 1,000 ML IV ONE (02:33)
[2024-04-21] MEDS ORDERED: Polyethylene Glycol 3350 17 GM PACKET PO PRN (02:40)
[2024-04-21] MEDS: oxyCODONE/Acetamin 5/325 mg TAB PO PRN (03:59)
[2024-04-21 07:22] LABS: ABS Basophils 0.1 10^3/uL (0.0-0.1); ABS Lymphocytes 1.6 10^3/uL (1.0-4.8); ABS Monocytes 0.6 10^3/uL (0.0-0.9); ABS Neutrophils 7.2 10^3/uL (1.5-7.6); Eosinophil % 0.4 %; Hematocrit 35.3 % (35-45); Hemoglobin 11.7 g/dL (11.5-14.3); Lymphocyte % 16.4 %; Mean Corpuscular Hemoglobin 29.4 pg (27-33); Mean Corpuscular Hgb Conc 33.3 g/dL (31-36); Mean Corpuscular Volume 88.3 fL (80-97); Mean Platelet Volume 7.7 fL (7.5-11.2); Platelet Count 205 10^3/uL (150-450); Red Cell Distribution Width 14.3 % (12-17); White Blood Count 9.5 10^3/uL (3.8-11.8)
[2024-04-21] MEDS: Polyethylene Glycol 3350 17 GM PACKET PO SCH ×2 (09:04→22:08)
[2024-04-21 09:12] LABS: Calcium 8.9 mg/dL (8.6-10.3); Creatinine, Serum 0.9 mg/dL (0.51-0.95); Magnesium 1.9 mg/dL (1.9-2.7); Potassium 4.3 mmol/L (3.5-5.0); eGFR CKD-EPI 61.5 (>60)
[2024-04-21] MEDS: Senna TAB 8.6 mg TAB PO SCH (10:57)
[2024-04-21] MEDS: Magnesium Hydroxide LIQ 30 ML UDC PO SCH (14:12)
[2024-04-21] MEDS: Sodium Phosphate ADULT ENEMA 133 ML BTL PR ONE (18:08)
[2024-04-21] MEDS ORDERED: Senna TAB 8.6 mg TAB PO SCH (21:00)
[2024-04-21] MEDS ORDERED: Enoxaparin 40 MG/0.4 ML SYR SUBCUT SCH (21:00)
[2024-04-22 09:51] VITALS: BP 134/107
== END 2024-04-22 13:37 | disposition home or self-care (01) ==
LOC: ED 16:26 → EDHOLD 16:26 → MED 04-21 03:46
PROVIDERS: ADMIT Internal Medicine; ATTEND Hospitalist